=== PATIENT | female | born 1985 | race Caucasian/White ===

== ENCOUNTER 2016-09-24 14:40 | Outpatient (CLI) | payer MEDICAID ==
[~2016-09-24 14:40] MED LIST: BUSPAR 10MG TAB10 MG PO; DILAUDID2 MG PO; IBUPROFEN800 MG PO; LODINE400 MG PO; MOTRIN400 MG PO; PEN-VK500 MG PO; PERCOCET 5/3251 EACH PO; PHENERGAN 25MG.25 M1 PO; PRENATAL PLUS1 TA1 PO; RANITIDINE HCL150 MG PO; SPRINTEC 35 MCG1 TAB PO; VICODIN 7.5/501 EACH PO; ZANTAC150 MG PO
[2016-09-24 15:14] LABS: LYMPH # 3.4 K/mm3 (0.7-4.5); LYMPH % 43.4 % (10-50.0)
[2016-09-24] MEDS ORDERED: VITAMIN D31000 IU PO (15:16)
[2016-09-24 15:20] VITALS: BP 124/61
[2016-09-24 15:25] LABS: HEMOGLOBIN 7.6 g/dL (12.2-16.2)
[2016-09-24 18:18] LABS: ANTIHUMAN GLOB CROSSMATCH COMPAT
[2016-09-24 18:19] LABS: ABO BLOOD TYPE O; RH BLOOD TYPE POSITIVE
== END 2016-09-24 15:45 | disposition home or self-care (01) ==
LOC: LAB 14:40 → COP 14:40
PROVIDERS: Nurse Practitioner Obstetrics & Gynecology
DX: N92.0 Excessive and frequent menstruation with regular cycle (principal); D50.8 Other iron deficiency anemias

== ENCOUNTER → 2017-01-22 | Outpatient (CLI) | payer MEDICAID ==
[~2017-01-22] MED LIST changes: +VITAMIN D31000 IU PO
[2017-01-23 09:37] LABS: DHEA-Sulfate 178.6 ug/dL (84.8-378.0); Estradiol 21.1 pg/mL (.); FSH 5.8 mIU/mL (.); LH 4.9 mIU/mL (.)
== END ==
LOC: LAB 09:53
PROVIDERS: Nurse Practitioner Obstetrics & Gynecology
DX: N94.6 Dysmenorrhea, unspecified (principal)